=== PATIENT | male | born 1995 | race Caucasian/White ===

== ENCOUNTER → 2018-11-07 | Outpatient (CLI) | payer BC ==
[~2018-11-07] MED LIST: RECEIVED CONTRAST 20 ML VIAL IV SCH
[2018-11-07] MEDS: IOPAMIDOL 61% 100 ML (ISOVUE 300) VIAL IV ONE (14:47)
[2018-11-07] MEDS: NS 50 ML (IVPB) BAG IV ONE (14:47)
[2018-11-07] MEDS: CATHETER FLUSH 10 ML SYR IV PRN (14:47)
--- NOTE | 2018-11-07 15:12 | Diagnostic Imaging Report ---
PROCEDURE: CT abdomen and pelvis with and without contrast. TECHNIQUE: Precontrast acquisitions were acquired through the abdomen and pelvis. Multiple contiguous axial images were obtained through the abdomen and pelvis after the administration of intravenous contrast. INDICATION: Hematuria. COMPARISON: No prior studies are available for comparison. FINDINGS: The lung bases are clear. The liver and gallbladder are unremarkable. The pancreas and spleen are unremarkable. No adrenal mass is seen. The right kidney is unremarkable. The left kidney contains a 3 mm calculus in the lower pole. No definite ureteral calculi or evidence of hydronephrosis is detected. Left pelvic calcification appears to represent a phlebolith. The bladder is unremarkable. The aorta is nonaneurysmal. The small and large bowel loops are nonobstructed. There is no ascites. Bladder and prostate are unremarkable. No abdominal or pelvic lymphadenopathy is seen. IMPRESSION: 3 mm nonobstructed left lower pole renal calculus. No definite ureteral calculi or hydronephrosis is seen. The study is otherwise unremarkable. Dictated by: Dictated on workstation # [id number]
== END ==
LOC: RAD FS 14:15
PROVIDERS: ATTEND Nurse Practitioner Family
DX: N20.0 Calculus of kidney (principal)
CPT/HCPCS: 74178

== ENCOUNTER 2019-04-22 09:25 | Emergency (ER) | payer BC ==
[~2019-04-22] VITALS: Ht 180.3 cm; Wt 77.1 kg
[2019-04-22] VITALS (7 sets, daily range): BP systolic 101–132; BP diastolic 66–84
[2019-04-22] MEDS ORDERED: NS IV 1000 ML 1,000 ML IV STA (09:33)
--- NOTE | 2019-04-22 09:39 | ED Chest Pain ---
General Stated Complaint: SOB; CHEST PAIN Source: patient History of Present Illness Date Seen by Provider: Apr 22, 2019 Time Seen by Provider: 09:26 Initial Comments 23-year-old male presenting with complaints of chest pain shortness of breath. He states this is been going on since Saturday off and on. He felt like it was worse today. He has had similar symptoms in the past when he had a low sodium. He was started on Zoloft to replace Effexor which was not helping his anxiety and depression. He states that since Saturday he has been having dizziness and lightheadedness. He has occasional shortness of breath and chest pain as well. He has felt like he might pass out at times. He was having similar symptoms for years ago and was worked up and [facility] Stanley in [place] for the symptoms. He was told that he had low sodium as well as having a problem with his aortic valve. He said that those issues had resolved. He also has been having diarrhea since starting the Zoloft on Saturday. He has not like the way that he's been feeling since Saturday. Today was the worst that he has felt since Saturday. He left work to come to the emergency department to be evaluated. His primary care doctor is in [facility]. He rarely goes to on because he has in general healthy. He had gone to [facility] in [place] to get switched to the Zoloft on Saturday. Allergies and Home Medications Allergies Coded Allergies: No Known Drug Allergies (Unverified , 04/22/19) Patient Home Medication List Home Medication List Reviewed: Yes Review of Systems Review of Systems Constitutional: No chills; dizziness; No fever EENTM: No Symptoms Reported Respiratory: Shortness of Air; Denies Stridor, Denies Wheezing Cardiovascular: Chest Pain (tightness), Lightheadedness, Other (near syncope and feeling like he might pass out at times) Gastrointestinal: Denies Abdominal Pain; Diarrhea; Denies Difficulty Swallowing, Denies Nausea, Denies Vomiting Genitourinary: No Symptoms Reported Musculoskeletal: no symptoms reported Skin: no symptoms reported Psychiatric/Neurological: Anxiety Endocrine: No Symptoms Reported Past Bdmzaos-Krjmcs-Uiinuu Hx Past Med/Social Hx: Reviewed Nursing Past Med/Soc Hx Past Medical History Cardiac: Yes (and issue with his aortic valve) Anxiety, Depression Physical Exam Vital Signs Vital Signs - First Documented Capillary Refill : Height, Weight, BMI Height: '" Weight: lbs. oz. kg; BMI Method: General Appearance: WD/WN, Anxious HEENT: PERRL/EOMI, Normal ENT Inspection, Pharynx Normal Neck: Full Range of Motion, Normal Inspection, Non Tender, Supple; No Carotid Bruit Respiratory: Chest Non Tender, Lungs Clear, Normal Breath Sounds, No Accessory Muscle Use, No Respiratory Distress Cardiovascular: Regular Rate, Rhythm, No Edema, No Gallop, No JVD, No Murmur, Normal Peripheral Pulses Gastrointestinal: Normal Bowel Sounds, No Pulsatile Mass, Non Tender, Soft Extremity: Normal Capillary Refill, Normal Inspection, Normal Range of Motion, Non Tender, No Calf Tenderness Neurologic/Psychiatric: Alert, Oriented x3, No Motor/Sensory Deficits, 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, Other (anxious) Skin: Normal Color, Warm/Dry Progress/Results/Core Measures Results/Orders Lab Results Laboratory Tests Test 04/22/19 09:30 04/22/19 09:55 Range/Units White Blood Count 6.8 4.3-11.0 10^3/uL Red Blood Count 5.50 4.35-5.85 10^6/uL Hemoglobin 18.2 H 13.3-17.7 G/DL Hematocrit 51 40-54 % Mean Corpuscular Volume 93 80-99 FL Mean Corpuscular Hemoglobin 33 25-34 PG Mean Corpuscular Hemoglobin Concent 36 32-36 G/DL Red Cell Distribution Width 12.4 10.0-14.5 % Platelet Count 265 130-400 10^3/uL Mean Platelet Volume 10.0 7.4-10.4 FL Neutrophils (%) (Auto) 63 42-75 % Lymphocytes (%) (Auto) 29 12-44 % Monocytes (%) (Auto) 7 0-12 % Eosinophils (%) (Auto) 1 0-10 % Basophils (%) (Auto) 0 0-10 % Neutrophils # (Auto) 4.3 1.8-7.8 X 10^3 Lymphocytes # (Auto) 2.0 1.0-4.0 X 10^3 Monocytes # (Auto) 0.5 0.0-1.0 X 10^3 Eosinophils # (Auto) 0.1 0.0-0.3 10^3/uL Basophils # (Auto) 0.0 0.0-0.1 10^3/uL Prothrombin Time 14.1 12.2-14.7 SEC INR Comment 1.1 0.8-1.4 Activated Partial Thromboplast Time 30 24-35 SEC Sodium Level 140 135-145 MMOL/L Potassium Level 3.6 3.6-5.0 MMOL/L Chloride Level 99 98-107 MMOL/L Carbon Dioxide Level 21 21-32 MMOL/L Anion Gap 20 H 5-14 MMOL/L Blood Urea Nitrogen 9 7-18 MG/DL Creatinine 1.11 0.60-1.30 MG/DL Estimat Glomerular Filtration Rate > 60 BUN/Creatinine Ratio 8 Glucose Level 125 H 70-105 MG/DL Calcium Level 10.1 8.5-10.1 MG/DL Corrected Calcium 8.5-10.1 MG/DL Magnesium Level 2.0 1.6-2.4 MG/DL Total Bilirubin 0.9 0.1-1.0 MG/DL Aspartate Amino Transf (AST/SGOT) 17 5-34 U/L Alanine Aminotransferase (ALT/SGPT) 18 0-55 U/L Alkaline Phosphatase 105 40-136 U/L Troponin I < 0.30 <0.30 NG/ML Pro-B-Type Natriuretic Peptide < 5.0 <75.0 PG/ML Total Protein 7.8 6.4-8.2 GM/DL Albumin 5.2 H 3.2-4.5 GM/DL Lipase 16 8-78 U/L Urine Color YELLOW Urine Clarity CLEAR Urine pH 8.0 5-9 Urine Specific [place] 1.010 L 1.016-1.022 Urine Protein NEGATIVE NEGATIVE Urine Glucose (UA) NEGATIVE NEGATIVE Urine Ketones TRACE H NEGATIVE Urine Nitrite NEGATIVE NEGATIVE Urine Bilirubin NEGATIVE NEGATIVE Urine Urobilinogen 0.2 NORMAL MG/DL Urine Leukocyte Esterase NEGATIVE NEGATIVE Urine RBC (Auto) NEGATIVE NEGATIVE Urine RBC NONE /HPF Urine WBC 0-2 /HPF Urine Squamous Epithelial Cells RARE /HPF Urine Crystals NONE /LPF Urine Bacteria NEGATIVE /HPF Urine Casts NONE /LPF Urine Mucus NEGATIVE /LPF Urine Culture Indicated NO Urine Opiates Screen NEGATIVE NEGATIVE Urine Oxycodone Screen NEGATIVE NEGATIVE Urine Methadone Screen NEGATIVE NEGATIVE Urine Propoxyphene Screen NEGATIVE NEGATIVE Urine Barbiturates Screen NEGATIVE NEGATIVE Ur Tricyclic Antidepressants Screen NEGATIVE NEGATIVE Urine Phencyclidine Screen NEGATIVE NEGATIVE Urine Amphetamines Screen NEGATIVE NEGATIVE Urine Methamphetamines Screen NEGATIVE NEGATIVE Urine Benzodiazepines Screen NEGATIVE NEGATIVE Urine Cocaine Screen NEGATIVE NEGATIVE Urine Cannabinoids Screen POSITIVE H NEGATIVE My Orders Orders - RULA BARTON MD Cbc With Automated Diff (04/22/19 09:33) Magnesium (04/22/19:33) Ekg Tracing (04/22/19 09:33) Comprehensive Metabolic Panel (04/22/19 09:33) Protime With Inr (04/22/19:33) Partial Thromboplastin Time (04/22/19:33) Monitor-Rhythm Ecg Trace Only (04/22/19:33) Aspirin Chewable Tablet (Baby Aspirin Ch (04/22/19 09:45) Ed Iv/Invasive Line Start (04/22/19:33) Lipase (04/22/19:33) Troponin I (04/22/19:33) Probnp Fs (04/22/19 09:33) Ua Culture If Indicated (04/22/19 09:33) Drug Screen Stat (Urine) (04/22/19 09:33) Ns Iv 1000 Ml (Sodium Chloride 0.9%) (04/22/19 09:33) Chest Pa/Lat (2 View) (04/22/19 09:36) Medications Given in ED Current Medications Medications Dose Ordered Sig/Devika Route Start Time Stop Time Status Last Admin Dose Admin Aspirin 324 mg ONCE ONCE PO 04/22/19 09:45 04/22/19 09:46 DC 04/22/19 09:45 324 MG Vital Signs/I&O 04/22/19 04/22/19 09:25 09:25 Temp 99.0 Pulse 84 Resp 16 B/P (MAP) 120/84 (96) Pulse Ox 99 O2 Delivery Room Air Room Air Progress Progress Note #1: Progress Note Obtain electrocardiogram as well as chest x-ray and blood work. We will also check a urine and urine drug screen to evaluate for any drugs in his system or other reason that might be accounting for his near syncope and dizziness. Progress Note #2: Progress Note Electrocardiogram does not show any acute significant abnormality. His chest x- ray is clear without acute process. His labs are all normal without acute significant abnormality. His chemistry does not show any acute electrolyte imbalance and his cardiac enzymes are normal. His urinalysis is normal without signs of infection. His urine drug screen shows marijuana but no other drugs of abuse. He was feeling a little better after fluids. I advised him to hold off on taking any more of the Zoloft. I encouraged him to check with the clinic to see what else they would recommend he take. Also given the phone number for cardiology case they wanted to follow-up with them to do further testing since he mentioned that at one point she was told he had an aortic valve issue. I did not hear any murmur or appreciate any abnormality on his chest x-ray to go along with valvular dysfunction. Initial ECG Impression Date: Apr 22, 2019 Initial ECG Impression Time: 09:25 Initial ECG Rate: 80 Initial ECG Rhythm: Normal Sinus Initial ECG Comparisson: No Previous ECG Available Comment Normal sinus rhythm with heart rate of 80 bpm. TX interval of 123 ms. He has no acute ST elevation. He has a QT interval of 347 ms and a QT corrected interval 401 ms. There is no prior tracing for comparison. Diagnostic Imaging Diagonstic Imaging: Xray Plain Films/CT/US/NM/MRI: chest Comments NAME: [facility] REC#: [id number] PT STATUS: REG ER : 1995 PHYSICIAN: RULA BARTON MD ADMIT DATE: 04/22/19/ER FS Draft Date of Exam:04/22/19 CHEST PA/LAT (2 VIEW) INDICATION: Wheezing, dizziness, shortness or breath. FINDINGS: Benign calcified granuloma right lower lobe noted incidentally. No suspicious or noncalcified chest nodule. Hilar and mediastinal contour is normal. There is no failure, effusion or pneumothorax. IMPRESSION: No acute appearing abnormality. Dictated on workstation # [id number] Dict: 04/22/19 0954 Trans: 04/22/19 1008 [id number] Interpreted by: HERMELINDO MILIAN Electronically signed by: Departure Impression Primary Impression: Dizziness Additional Impressions: Near syncope Chest tightness Adverse reaction to SSRI antidepressant drug Qualified Codes: T43.225A - Adverse effect of selective serotonin reuptake inhibitors, initial encounter Disposition: 01 HOME, SELF-CARE Condition: Stable Departure-Patient Inst. Decision time for Depature: 10:54 Referrals: Timothy PAULINO MD, JOHN R MD (PCP) Primary Care Physician Patient Instructions: Near Fainting (DC), Dizziness, Nonvertigo, (DC), Chest Pain That Is Not Caused by the Heart (DC) Add. Discharge Instructions: Stay well hydrated and get plenty of rest. Follow up with primary provider for continued concerns. See Cardiology for further concerns with your heart or aortic valve as a potential cause of any of your symptoms. Based on the timing of your symptoms this seems to be related to the Zoloft medication. Try stopping the medicine and check with the [facility] clinic from [place] to see what they would recommend you take instead or want you to try for your other conditions. Work/School Note: Work Release Form Date Seen in the Emergency Department: Apr 22, 2019 Return to Work: Apr 24, 2019 Restrictions: No Restrictions RULA BARTON MD Apr 22, 2019 09:39
[2019-04-22] MEDS ORDERED: ASPIRIN 81 MG CHEW (CHILDREN'S ASA) PO ONE (09:45)
[2019-04-22] MEDS ORDERED: SERT25TA5 (09:51)
[2019-04-22 09:59] LABS: HEMATOCRIT 51 % (40-54); HEMOGLOBIN 18.2 G/DL (13.3-17.7); MEAN CORPUSCULAR HEMOGLOBIN 33 PG (25-34); MEAN CORPUSCULAR HGB CONC 36 G/DL (32-36); MEAN CORPUSCULAR VOLUME 93 FL (80-99); WHITE BLOOD COUNT 6.8 10^3/uL (4.3-11.0)
[2019-04-22 10:00] LABS: PLATELET COUNT 265 10^3/uL (130-400); RED CELL DISTRIBUTION WIDTH 12.4 % (10.0-14.5)
[2019-04-22 10:04] LABS: BASOPHILS % (AUTO) 0 % (0-10); EOSINOPHILS # (AUTO) 0.1 10^3/uL (0.0-0.3); EOSINOPHILS % (AUTO) 1 % (0-10); LYMPHOCYTES % (AUTO) 29 % (12-44); MONOCYTES # (AUTO) 0.5 X 10^3 (0.0-1.0); MONOCYTES % (AUTO) 7 % (0-12); NEUTROPHILS # (AUTO) 4.3 X 10^3 (1.8-7.8); NEUTROPHILS % (AUTO) 63 % (42-75)
--- NOTE | 2019-04-22 10:08 | Diagnostic Imaging Report ---
INDICATION: Wheezing, dizziness, shortness or breath. FINDINGS: Benign calcified granuloma right lower lobe noted incidentally. No suspicious or noncalcified chest nodule. Hilar and mediastinal contour is normal. There is no failure, effusion or pneumothorax. IMPRESSION: No acute appearing abnormality. Dictated by: Dictated on workstation # [id number]
[2019-04-22 10:12] LABS: INR 1.1 (0.8-1.4); PROTHROMBIN TIME PATIENT 14.1 SEC (12.2-14.7)
[2019-04-22 10:18] LABS: BACTERIA,URINE NEGATIVE /HPF; BILIRUBIN,URINE NEGATIVE (NEGATIVE); CLARITY,URINE CLEAR; COLOR,URINE YELLOW; GLUCOSE, URINE (UA) NEGATIVE (NEGATIVE); LEUKOCYTE ESTERASE ,URINE NEGATIVE (NEGATIVE); NITRITE,URINE NEGATIVE (NEGATIVE); PROTEIN,URINE NEGATIVE (NEGATIVE); SQUAMOUS EPITHELIAL CELL,UR RARE /HPF; UROBILINOGEN,URINE 0.2 MG/DL (NORMAL); WBC,URINE 0-2 /HPF
[2019-04-22 10:19] LABS: KETONES,URINE TRACE (NEGATIVE)
[2019-04-22 10:20] LABS: ALANINE AMINOTRANSFERASE 18 U/L (0-55); ALKALINE PHOSPHATASE 105 U/L (40-136); BILIRUBIN,TOTAL 0.9 MG/DL (0.1-1.0); BUN/CREATININE RATIO 8; CALCIUM 10.1 MG/DL (8.5-10.1); CARBON DIOXIDE 21 MMOL/L (21-32); CHLORIDE 99 MMOL/L (98-107); CREATININE SERUM 1.11 MG/DL (0.60-1.30); GFR ESTIMATED > 60; GLUCOSE 125 MG/DL (70-105); POTASSIUM 3.6 MMOL/L (3.6-5.0); SODIUM 140 MMOL/L (135-145)
[2019-04-22 10:21] LABS: ALBUMIN 5.2 GM/DL (3.2-4.5); LIPASE 16 U/L (8-78); TOTAL PROTEIN 7.8 GM/DL (6.4-8.2)
[2019-04-22 10:22] LABS: BENZODIAZEPINES SCREEN URINE NEGATIVE (NEGATIVE); COCAINE SCREEN URINE NEGATIVE (NEGATIVE)
[2019-04-22 10:23] LABS: AMPHETAMINE SCREEN, URINE NEGATIVE (NEGATIVE); BARBITURATE SCREEN URINE NEGATIVE (NEGATIVE); CANNABINOID SCREEN, URINE POSITIVE (NEGATIVE); METHADONE STAT NEGATIVE (NEGATIVE); METHAMPHETAMINE SCREEN URINE S NEGATIVE (NEGATIVE); OPIATE SCREEN URINE NEGATIVE (NEGATIVE); OXYCODONE STAT NEGATIVE (NEGATIVE); PROPOXYPHENE STAT NEGATIVE (NEGATIVE); TRICYCLIC ANTIDEPRESSANTS SCRE NEGATIVE (NEGATIVE)
== END 2019-04-22 11:13 | disposition home or self-care (01) ==
LOC: EDUNIT# 09:25 → ER FS 09:27
DX: R42 Dizziness and giddiness (principal); T43.225A Adverse effect of selective serotonin reuptake inhibitors, initial encounter; R55 Syncope and collapse; R07.89 Other chest pain; F41.9 Anxiety disorder, unspecified; F32.9 Major depressive disorder, single episode, unspecified
CPT/HCPCS: 36415; 71046; 80053; 80306; 81000; 83690; 83735; 83880; 84484; 85025; 85610; 85730; 93041

== ENCOUNTER → 2019-09-16 | Outpatient (CLI) | payer BC ==
[~2019-09-16] MED LIST changes: -RECEIVED CONTRAST 20 ML VIAL IV SCH; +SERT25TA5
--- NOTE | 2019-09-16 14:22 | Diagnostic Imaging Report ---
PROCEDURE: CT abdomen and pelvis without contrast. TECHNIQUE: Multiple contiguous axial images were obtained through the abdomen and pelvis without the use of intravenous contrast. Auto Exposure Controls were utilized during the CT exam to meet ALARA standards for radiation dose reduction. INDICATION: Left-sided abdominal pain. Correlation is made with prior CT from 11/07/2018. FINDINGS: The lung bases are clear. Liver and gallbladder are unremarkable. No biliary ductal dilatation is seen. The pancreas and spleen are unremarkable. No adrenal mass is detected. Tiny nonobstructing calculus in the lower pole of left kidney is seen measuring approximately 2-3 mm in size. No ureteral or bladder calculi are seen. There is no hydronephrosis. Aorta is nonaneurysmal. Bowel loops are normal caliber. There is no obstruction. There is some questionable wall thickening of the ascending and transverse colon. Descending colon is unremarkable. Small bowel loops are unremarkable. There is no free fluid or fluid collection. Bladder and prostate are unremarkable. IMPRESSION: 1. Tiny nonobstructing left lower pole renal calculus. No ureteral calculus or hydronephrosis is detected. 2. Questionable wall thickening versus incomplete distention of the ascending and transverse colon. Colitis cannot be entirely excluded. The remainder of the study is unremarkable. Dictated by: Dictated on workstation # [id number]
== END ==
LOC: RAD FS 13:26
PROVIDERS: ATTEND Nurse Practitioner Family
DX: R31.9 Hematuria, unspecified (principal); R10.9 Unspecified abdominal pain; Z87.442 Personal history of urinary calculi
CPT/HCPCS: 74176

== ENCOUNTER 2020-10-18 20:16 | Emergency (ER) | payer BC ==
[~2020-10-18 20:16] MED LIST changes: +SERT-412; -SERT25TA5
[2020-10-18] MEDS ORDERED: LIDOCAINE 1% INJ 20 ML 20 ML VIAL ONE (20:26)
--- NOTE | 2020-10-18 20:57 | ED Upper Extremity ---
General Chief Complaint: Laceration Stated Complaint: RT HAND LAC History of Present Illness Date Seen by Provider: Oct 18, 2020 Time Seen by Provider: 20:30 Initial Comments 25-year-old male presents with a cut to his right hand. States he was doing dishes and a glass broke cutting the back of his right hand. Denies any other injury or pain. Has had moderate bleeding but is controlled. Onset: just prior to arrival Allergies and Home Medications Allergies Coded Allergies: No Known Drug Allergies (Unverified , 04/22/19) Patient Home Medication List Home Medication List Reviewed: Yes Review of Systems Constitutional: no symptoms reported; No fever, No malaise, No weakness Musculoskeletal: see HPI, other (cut back of right hand) Skin: see HPI, other (lac R hand) Psychiatric/Neurological: Denies Numbness, Denies Paresthesia Past Ywglazj-Keoimg-Npzjqj Hx Past Med/Social Hx: Reviewed Nursing Past Med/Soc Hx Patient Social History Type Used: Cigarettes 2nd Hand Smoke Exposure: Yes Recent Hopitalizations: No Seasonal Allergies Seasonal Allergies: Yes Past Medical History Surgeries: Yes (kidney stone retrieval) Respiratory: No Cardiac: Yes (and issue with his aortic valve) Neurological: No Genitourinary: No Gastrointestinal: No Musculoskeletal: No Endocrine: No HEENT: No Cancer: No Psychosocial: Yes (reports on meds as mood stabilizer) Anxiety, Depression Integumentary: No Blood Disorders: No Physical Exam Vital Signs Capillary Refill : Height, Weight, BMI Height: 5'11.00" Weight: 170lbs. oz. 77.230664qy; BMI Method:Stated General Appearance: WD/WN, no apparent distress Hand: normal inspection, non-tender, normal ROM, Right, soft tissue tenderness (w 1.5cm lac) Procedures/Interventions Wound Location: Upper Extremities Other Wound Location dorsum R hand- overlying 2nd MCP -- 1.5cm full thickness laceration Wound Explored: clean Anesthesia: 1% Lidocaine Volume Anesthetic (ccs): 2 Suture: Ethlion Suture Size: 4-0 Number of Sutures: 2 Sterile Dressing Applied?: Yes Progress/Results/Core Measures Results/Orders My Orders Orders - JAXSON DANIELS DO Lidocaine 1% Inj 20 Ml (Xylocaine 1% Inj (10/18/20 20:26) Departure Impression Primary Impression: Laceration of hand Qualified Codes: S61.411A - Laceration without foreign body of right hand, initial encounter Disposition: 01 HOME, SELF-CARE Condition: Stable Departure-Patient Inst. Decision time for Depature: 20:57 Referrals: LALI RAINES MD (PCP/Family) Primary Care Physician Patient Instructions: Laceration Repair With Stitches (DC) Add. Discharge Instructions: Follow up with your PCP in 7 to 10 days for removal of your stitches All discharge instructions reviewed with patient and/or family. Voiced understanding. JAXSON DANIELS DO Oct 18, 2020 20:57
[2020-10-18] MEDS ORDERED: LIDOCAINE 1% INJ 20 ML 20 ML VIAL INJ ONE (21:00)
[2020-10-18 21:09] VITALS: BP 119/67
== END 2020-10-18 21:15 | disposition home or self-care (01) ==
LOC: EDUNIT# 20:16 → ER FS 20:18
DX: S61.411A Laceration without foreign body of right hand, initial encounter (principal); Z77.22 Contact with and (suspected) exposure to environmental tobacco smoke (acute) (chronic); W25.XXXA Contact with sharp glass, initial encounter